=== PATIENT | male | born 2000 | race Caucasian/White ===

== ENCOUNTER 2022-03-23 16:49 | Emergency (ER) | payer SELFPAY ==
[~2022-03-23] VITALS: Ht 182.9 cm; Wt 67.7 kg
[2022-03-23 17:09] VITALS: BP 111/69; TEMP 98.8
[2022-03-23 18:00] VITALS: PULSE 66
== END 2022-03-23 18:00 | disposition home or self-care (01) ==
LOC: COL.ER 16:49
DX: Z20.3 Contact with and (suspected) exposure to rabies (principal); Z29.14 Encounter for prophylactic rabies immune globulin

== ENCOUNTER 2022-03-27 14:04 | Outpatient (RCR) | payer SELFPAY ==
[~2022-03-27] VITALS: Ht 182.9 cm; Wt 67.1 kg
[2022-04-03 09:23] VITALS: BP 117/76; PULSE 61; TEMP 97.8
== END 2022-04-03 10:39 | disposition home or self-care (01) ==
LOC: COL.ER → EUO 04-03 08:53
DX: Z29.14 Encounter for prophylactic rabies immune globulin (principal)

== ENCOUNTER 2022-11-30 17:26 | Emergency (ER) | payer BC ==
[~2022-11-30] VITALS: Ht 182.9 cm; Wt 68.2 kg
[2022-11-30 17:32] VITALS: TEMP 97.7
[2022-11-30 18:22] LABS: COLLECTION METHOD CLEAN CATCH
[2022-11-30 18:25] LABS: BASO # 0.1 K/mm3 (0.0-0.2); BASO % 0.9 % (0.0-2.0); EOS # 0.2 K/mm3 (0.0-0.7); EOS % 2.1 % (0.0-4.0); GRAN # 5.8 K/mm3 (1.4-6.5); GRAN % 70.9 % (42.2-75.2); HEMATOCRIT 45.1 % (36.0-47.0); LYMPH # 1.8 K/mm3 (1.2-3.4); LYMPH % 21.7 % (20.0-51.0); MEAN CELL VOLUME 85 fl (80.0-95.0); MEAN CORPUSCULAR HEMOGLOBIN 30 pg (26-32); MEAN CORPUSCULAR HGB CONC 36 g/dl (33.0-37.0); MEAN PLATELET VOLUME 11.1 fl (7.4-10.4); MONO # 0.4 K/mm3 (0.1-0.6); MONO % 4.3 % (1.7-9.3); PLATELET COUNT 245 K/mm3 (130-400); RED BLOOD COUNT 5.29 M/mm3 (4.20-5.60); REDCELL DISTRIBUTION WIDTH-CV 11.7 % (11.5-14.5)
[2022-11-30 18:41] LABS: BILIRUBIN,TOTAL 2.2 mg/dL (0.2-1.2); CALCIUM 10.4 mg/dL (8.4-10.2); CREATININE, serum 1.05 mg/dL (0.72-1.25); MUCOUS Present (NOT PRESENT); POTASSIUM 3.7 mmol/L (3.5-4.5); URINE BACTERIA None Seen /hpf (NONE SEEN)
[2022-11-30 18:42] LABS: PH 5.5 (5-8); URINE APPEARANCE Hazy (CLEAR/HAZY); URINE BLOOD TRACE-INTACT (NEGATIVE); URINE COLOR Yellow (YELLOW); URINE GLUCOSE Negative (NEGATIVE); URINE KETONE 3+ (NEGATIVE); URINE NITRATE Negative (NEGATIVE); URINE PROTEIN(semi-quant) 2+ (NEGATIVE); URINE UROBILINOGEN 0.2 (NEGATIVE)
[2022-11-30] MEDS ORDERED: ZOFRAN ODT4 MG PO (19:00)
[2022-11-30 22:35] VITALS: BP 122/70; PULSE 74
== END 2022-11-30 22:57 | disposition home or self-care (01) ==
LOC: COL.ER 17:26
PROVIDERS: Physician Assistant
DX: K22.2 Esophageal obstruction (principal)
CPT/HCPCS: J1610; J2060; J2405; J2704; J7030; J7120